=== PATIENT | female | born 1975 | race Caucasian/White ===

== ENCOUNTER 2020-01-14 07:18 | Outpatient (CLI) | payer OTHER | END 2020-01-14 20:15 | disposition home or self-care (01) | LOC: MUS 07:18 | PROVIDERS: ATTEND Family Medicine | DX: K80.20 Calculus of gallbladder without cholecystitis without obstruction (principal) | CPT/HCPCS: 76700; Q0092 ==

== ENCOUNTER 2020-03-10 10:24 | Inpatient (IN) | payer OTHER, SELFPAY ==
[~2020-03-10] VITALS: Ht 162.6 cm; Wt 71.7 kg
[2020-03-10 10:26] VITALS: BP 123/89
[2020-03-10] MEDS ORDERED: NACL 0.9% 500 ML IV ONE (11:07)
[2020-03-10] MEDS ORDERED: KETOROLAC 30 MG/ML VIAL IVP ONE (11:10)
[2020-03-10] MEDS ORDERED: ONDANSETRON 4 MG/2 ML VIAL IVP ONE (11:10)
[2020-03-10 11:27] LABS: BASOPHILS # (AUTO) 0.1 K/uL (0.00-0.22); BASOPHILS % (AUTO) 1.6 % (0.0-2.0); EOSINOPHILS % (AUTO) 0.4 % (0.0-4.0); HEMATOCRIT 37.3 % (36-48); HEMOGLOBIN 12.8 g/dL (12.0-16.0); LYMPHOCYTES # (AUTO) 1.5 K/uL (2.5-16.5); LYMPHOCYTES % (AUTO) 27.7 % (20.5-51.1); MEAN CORPUSCULAR HEMOGLOBIN 34 pg (27-31); MEAN CORPUSCULAR HGB CONC 34 g/dL (33-37); MEAN CORPUSCULAR VOLUME 97.5 fL (80-94); MONOCYTES # (AUTO) 0.3 K/uL (0.8-1.0); MONOCYTES % (AUTO) 5.2 % (1.7-9.3); NEUTROPHILS # (AUTO) 3.5 K/uL (1.8-7.7); NEUTROPHILS % (AUTO) 65.1 % (42.2-75.2); PLATELET COUNT (AUTO) 263 K/uL (140-450); RED BLOOD CELL COUNT(AUTO) 3.82 MIL/uL (4.20-5.40); RED CELL DISTRIBUTION WIDTH 12.5 % (11.6-13.7); WHITE BLOOD COUNT (AUTO) 5.4 K/uL (4.8-10.8)
[2020-03-10] MEDS ORDERED: PANTOPRAZOLE 40 MG INJ VIAL IVP ONE (11:30)
[2020-03-10 11:46] LABS: ALBUMIN 3.7 g/dL (3.4-5.0); ANION GAP 12.2 (8-16); CARBON DIOXIDE 26.5 mmol/L (21-32); CREATININE 0.7 mg/dL (0.6-1.3); POTASSIUM 3.7 mmol/L (3.5-5.1); TOTAL BILIRUBIN 1.4 mg/dL (0.0-1.0)
[2020-03-10] MEDS ORDERED: ACETAMINOPHEN 325 MG TAB PO PRN (12:35)
[2020-03-10] MEDS ORDERED: DOCUSATE SODIUM 100 MG GELCAP PO PRN (12:35)
[2020-03-10] MEDS ORDERED: POTASSIUM CHLORIDE 10 MEQ TABER PO PRN ×2 (12:35→12:51)
[2020-03-10 13:00] VITALS: BP 118/78
[2020-03-10 13:12] LABS: FREE T4 (FREE THYROXINE) 1.27 ng/dL (0.76-1.46); MAGNESIUM 1.8 mg/dL (1.8-2.4); PHOSPHORUS 2.3 mg/dL (2.5-4.9); THYROID STIMULATING HORMONE 1.46 uIU/mL (0.34-3.74)
[2020-03-10 14:10] LABS: PROTHROMBIN TIME 9.8 secs (10.8-13.4)
[2020-03-10] MEDS: NACL 0.9% 1,000 ML IV SCH (15:41)
[2020-03-10] MEDS: HYDROcodone/APAP 7.5/325 MG 1 TAB PO PRN (19:55)
[2020-03-10] MEDS: ONDANSETRON 4 MG/2 ML VIAL IM/IVP PRN (22:09)
[2020-03-11] VITALS: BP 104/64
[2020-03-11 05:28] LABS: BASOPHILS % (AUTO) 0.4 % (0.0-2.0); HEMATOCRIT 33.2 % (36-48); HEMOGLOBIN 11.4 g/dL (12.0-16.0); LYMPHOCYTES # (AUTO) 1.2 K/uL (2.5-16.5); LYMPHOCYTES % (AUTO) 35.9 % (20.5-51.1); MEAN CORPUSCULAR HEMOGLOBIN 34 pg (27-31); MEAN CORPUSCULAR HGB CONC 34 g/dL (33-37); MEAN CORPUSCULAR VOLUME 98.5 fL (80-94); MONOCYTES # (AUTO) 0.3 K/uL (0.8-1.0); MONOCYTES % (AUTO) 8.4 % (1.7-9.3); NEUTROPHILS # (AUTO) 1.8 K/uL (1.8-7.7); NEUTROPHILS % (AUTO) 54.3 % (42.2-75.2); PLATELET COUNT (AUTO) 217 K/uL (140-450); RED BLOOD CELL COUNT(AUTO) 3.37 MIL/uL (4.20-5.40); RED CELL DISTRIBUTION WIDTH 12.6 % (11.6-13.7); WHITE BLOOD COUNT (AUTO) 3.3 K/uL (4.8-10.8)
[2020-03-11 06:00] LABS: ANION GAP 10.7 (8-16); CARBON DIOXIDE 24.7 mmol/L (21-32); CREATININE 0.7 mg/dL (0.6-1.3); POTASSIUM 4.4 mmol/L (3.5-5.1)
[2020-03-11 06:01] LABS: MAGNESIUM 1.9 mg/dL (1.8-2.4)
[2020-03-11] MEDS: NACL 0.9% 1,000 ML IV SCH (06:19)
[2020-03-11 08:01] VITALS: BP 107/71
[2020-03-11 08:07] LABS: T4 (THYROXINE) 9.2 ug/dL (4.5-12.0)
[2020-03-11] MEDS: LIDOCAINE 1% 500 MG/50 ML VIAL ONE ×2 (10:00→19:40)
[2020-03-11] MEDS: BUPIVACAINE-MPF 0.25% 30 ML VIAL INJ ONE ×2 (10:00→19:40)
[2020-03-11 13:21] LABS: ALBUMIN 3.1 g/dL (3.4-5.0); BILIRUBIN,DIRECT 1.2 mg/dL (0.0-0.3); TOTAL BILIRUBIN 2.4 mg/dL (0.0-1.0)
[2020-03-11] MEDS: PIPERACILLIN/TAZOBACTAM 3.375 GM in DEXTROSE 5% 50 ML IV SCH ×2 (13:57→21:18)
[2020-03-11 16:00] VITALS: BP 110/68
[2020-03-11] MEDS ORDERED: BUPIVACAINE-MPF 0.25% 30 ML VIAL INJ ONE (17:21)
[2020-03-11] MEDS ORDERED: LIDOCAINE 1% 500 MG/50 ML VIAL ONE (17:21)
[2020-03-11] MEDS ORDERED: HYDROmorphone PFS 2 MG/ML SYR ONE ×2 (17:40→19:54)
[2020-03-11] MEDS ORDERED: SUCCINYLCHOLINE CHLORIDE 200 MG/10 ML VIAL IVP ONE (17:40)
[2020-03-11] MEDS ORDERED: KETOROLAC 30 MG/ML VIAL ONE (17:40)
[2020-03-11] MEDS ORDERED: DEXAMETHASONE 4 MG/ML VIAL ONE (17:40)
[2020-03-11] MEDS ORDERED: ONDANSETRON 4 MG/2 ML VIAL ONE (17:40)
[2020-03-11] MEDS ORDERED: NEOSTIGMINE 1:1000 10 MG/10 ML VIAL ONE (17:40)
[2020-03-11] MEDS ORDERED: PROPOFOL 200 MG/20 ML VIAL IV ONE (17:40)
[2020-03-11] MEDS ORDERED: ROCURONIUM 50 MG/5 ML VIAL IV ONE (17:40)
[2020-03-11] MEDS ORDERED: DESFLURANE 240 ML BTL INH ONE (17:40)
[2020-03-11] MEDS ORDERED: GLYCOPYRROLATE 0.2 MG/ML VIAL ONE (17:40)
[2020-03-11] MEDS ORDERED: fentaNYL citrate 0.05 MG/ML VIAL ONE (17:40)
[2020-03-11] MEDS ORDERED: MORPHINE SULFATE 4 MG/ML SYR IV PRN (19:40)
[2020-03-11] MEDS ORDERED: MORPHINE SULFATE 2 MG/ML SYR IVP PRN (19:40)
[2020-03-11] MEDS ORDERED: ONDANSETRON 4 MG/2 ML VIAL IV PRN (19:40)
[2020-03-11] MEDS: HYDROmorphone 1 MG/ML AMP IVP PRN ×3 (19:45→20:05)
[2020-03-11] MEDS ORDERED: ONDANSETRON 4 MG/2 ML VIAL IVP PRN (19:50)
[2020-03-11] MEDS: ONDANSETRON 4 MG/2 ML VIAL IM/IVP PRN (21:31)
[2020-03-12] VITALS: BP 109/71
[2020-03-12] MEDS: HYDROmorphone 1 MG/ML AMP IVP PRN ×3 (00:29→23:03)
[2020-03-12] MEDS: NACL 0.9% 1,000 ML IV SCH (02:19)
[2020-03-12] MEDS: ONDANSETRON 4 MG/2 ML VIAL IM/IVP PRN ×3 (02:27→11:03)
[2020-03-12] MEDS: PIPERACILLIN/TAZOBACTAM 3.375 GM in DEXTROSE 5% 50 ML IV SCH (04:11)
[2020-03-12 06:06] LABS: BASOPHILS % (AUTO) 0.1 % (0.0-2.0); HEMATOCRIT 35.5 % (36-48); LYMPHOCYTES # (AUTO) 0.6 K/uL (2.5-16.5); LYMPHOCYTES % (AUTO) 5.9 % (20.5-51.1); MEAN CORPUSCULAR HEMOGLOBIN 34 pg (27-31); MEAN CORPUSCULAR HGB CONC 34 g/dL (33-37); MEAN CORPUSCULAR VOLUME 99.4 fL (80-94); MONOCYTES # (AUTO) 0.3 K/uL (0.8-1.0); MONOCYTES % (AUTO) 2.5 % (1.7-9.3); NEUTROPHILS # (AUTO) 9.2 K/uL (1.8-7.7); NEUTROPHILS % (AUTO) 91.5 % (42.2-75.2); PLATELET COUNT (AUTO) 229 K/uL (140-450); RED BLOOD CELL COUNT(AUTO) 3.57 MIL/uL (4.20-5.40); RED CELL DISTRIBUTION WIDTH 12.4 % (11.6-13.7); WHITE BLOOD COUNT (AUTO) 10.1 K/uL (4.8-10.8)
[2020-03-12 06:15] LABS: MAGNESIUM 1.5 mg/dL (1.8-2.4); PHOSPHORUS 3.2 mg/dL (2.5-4.9)
[2020-03-12 06:28] LABS: ALBUMIN 3.3 g/dL (3.4-5.0); ANION GAP 15.4 (8-16); CARBON DIOXIDE 22.4 mmol/L (21-32); CREATININE 0.7 mg/dL (0.6-1.3); POTASSIUM 3.8 mmol/L (3.5-5.1); TOTAL BILIRUBIN 1.7 mg/dL (0.0-1.0)
[2020-03-12 08:00] VITALS: BP 108/69
[2020-03-12] MEDS: POTASSIUM CHLORIDE 10 MEQ in LACTATED RINGERS 1,000 ML IV SCH (15:08)
[2020-03-12] MEDS: HYDROcodone/APAP 7.5/325 MG 1 TAB PO PRN (15:18)
[2020-03-12 16:00] VITALS: BP 100/63
[2020-03-12] MEDS ORDERED: MAG SULF 2000 MG/WATER PREMIX 50 ML IV ONE (19:50)
[2020-03-13] VITALS: BP 101/59
[2020-03-13 05:58] LABS: BASOPHILS % (AUTO) 0.1 % (0.0-2.0); EOSINOPHILS % (AUTO) 0.2 % (0.0-4.0); HEMATOCRIT 35.3 % (36-48); HEMOGLOBIN 11.9 g/dL (12.0-16.0); LYMPHOCYTES % (AUTO) 23.2 % (20.5-51.1); MEAN CORPUSCULAR HEMOGLOBIN 34 pg (27-31); MEAN CORPUSCULAR HGB CONC 34 g/dL (33-37); MEAN CORPUSCULAR VOLUME 99.1 fL (80-94); MONOCYTES # (AUTO) 0.4 K/uL (0.8-1.0); MONOCYTES % (AUTO) 4.1 % (1.7-9.3); NEUTROPHILS # (AUTO) 6.2 K/uL (1.8-7.7); NEUTROPHILS % (AUTO) 72.4 % (42.2-75.2); PLATELET COUNT (AUTO) 253 K/uL (140-450); RED BLOOD CELL COUNT(AUTO) 3.57 MIL/uL (4.20-5.40); RED CELL DISTRIBUTION WIDTH 12.3 % (11.6-13.7); WHITE BLOOD COUNT (AUTO) 8.6 K/uL (4.8-10.8)
[2020-03-13 06:18] LABS: ANION GAP 12.1 (8-16); CARBON DIOXIDE 26.4 mmol/L (21-32); CREATININE 0.8 mg/dL (0.6-1.3); POTASSIUM 3.5 mmol/L (3.5-5.1)
[2020-03-13 06:27] LABS: MAGNESIUM 1.8 mg/dL (1.8-2.4); PHOSPHORUS 2.3 mg/dL (2.5-4.9)
[2020-03-13 06:33] LABS: ALBUMIN 3.3 g/dL (3.4-5.0); BILIRUBIN,DIRECT 0.3 mg/dL (0.0-0.3)
[2020-03-13] MEDS ORDERED: METOCLOPRAMIDE 10 MG/2 ML INJ VIAL ONE (10:00)
[2020-03-13] MEDS ORDERED: KETOROLAC 30 MG/ML VIAL ONE (10:00)
[2020-03-13] MEDS ORDERED: ONDANSETRON 4 MG/2 ML VIAL ONE (10:00)
[2020-03-13] MEDS ORDERED: PROPOFOL 200 MG/20 ML VIAL IV ONE (10:00)
[2020-03-13 11:23] VITALS: BP 106/69
[2020-03-13] MEDS: POTASSIUM CHLORIDE 10 MEQ in LACTATED RINGERS 1,000 ML IV SCH ×2 (11:26→14:38)
[2020-03-13] MEDS ORDERED: HYDR-5122 PO (13:16)
[2020-03-13 16:00] VITALS: BP 110/71
== END 2020-03-13 18:05 | disposition home or self-care (01) | DRG 419 ==
LOC: MED 10:24 → MMU 12:33
PROVIDERS: ADMIT Emergency Medicine; ATTEND Emergency Medicine
PROC: BF131ZZ Fluoroscopy of Gallbladder and Bile Ducts using Low Osmolar Contrast (ICD-10-PCS; 2020-03-11)
PROC: 0FT44ZZ Resection of Gallbladder, Percutaneous Endoscopic Approach (ICD-10-PCS; principal; 2020-03-11 10:30)
PROC: 0F798ZZ Dilation of Common Bile Duct, Via Natural or Artificial Opening Endoscopic (ICD-10-PCS; 2020-03-13)
PROC: 0DB68ZX Excision of Stomach, Via Natural or Artificial Opening Endoscopic, Diagnostic (ICD-10-PCS; 2020-03-13)
DX: K80.10 Calculus of gallbladder with chronic cholecystitis without obstruction (principal); Z20.828 Contact with and (suspected) exposure to other viral communicable diseases; E83.42 Hypomagnesemia; E83.39 Other disorders of phosphorus metabolism; Z90.49 Acquired absence of other specified parts of digestive tract; Z90.710 Acquired absence of both cervix and uterus
CPT/HCPCS: 36415; 74300; 74330; 76705; 80048; 80053; 80076; 82374; 83036; 83690; 83735; 84100; 84436; 84439; 84443; 84479; 85025; 85610; 85730; 86677; 86886; 86900; 86901; 87081; 93005; 96361; 96374; 96375; 99285; C1769; C1887; C9113; J0330; J0696; J1100; J1170; J1885; J2001; J2405; J2543; J2704; J2710; J2765; J3010; J3475; J3480; J3490; J7030; J7060; J7120; Q0092; U0003-CS